=== PATIENT | male | born 1940 ===

== ENCOUNTER 2018-03-21 10:28 | Outpatient (CLI) | payer OTHER ==
[~2018-03-21 10:28] MED LIST: COUMADIN5 MG; COZAAR50 MG; NIFEDICAL60 MG/BOTT; TRANDATE300 M1
== END 2018-03-21 10:34 | disposition home or self-care (01) ==
LOC: SONOGRAMA 10:28
DX: M65.222 Calcific tendinitis, left upper arm (principal); R91.1 Solitary pulmonary nodule; N28.89 Other specified disorders of kidney and ureter

== ENCOUNTER 2018-12-04 08:26 | Outpatient (CLI) | payer OTHER | END 2018-12-04 08:30 | disposition home or self-care (01) | LOC: SONOGRAMA 08:26 | DX: I63.89 Other cerebral infarction (principal) | CPT/HCPCS: 70551 ==